=== PATIENT | female | born 1970 | race American Indian/Alaskan Native ===

== ENCOUNTER 2019-08-06 09:52 | Emergency (ER) | payer SELFPAY ==
[2019-08-06 10:00] VITALS: BP 129/57
--- NOTE | 2019-08-06 10:19 | Emergency Department Report ---
Chief Complaint: Urogenital-Female Stated Complaint: VAGINAL IRRITATION Time Seen by Provider: 08/06/19 10:14 - HPI History of Present Illness: 49 yo female c/o vag itching 1.5 mo ago similar sx with minor improvement with monistat x 7 days sx returned no fever, abd pain, dysruria sexually active with - Exam Vital Signs: Vital Signs 08/06/19 09:57 Temperature 98.4 F Pulse Rate 64 Respiratory 18 Rate Blood Pressure 129/57 O2 Sat by Pulse 98 Oximetry Physical Exam: lungs ctab cv: rrr abd soft nontender no back pain MSE screening note: Focused history and physical exam performed. Due to findings the following was ordered: non medical emergency pt left without further tx outpt resources provided ED Disposition for MSE Clinical Impression: Vaginal irritation Disposition: MED SCREENING EXAM-LEFT Is pt being admited?: No Condition: Stable Time of Disposition: 10:19
== END 2019-08-06 10:30 | disposition left against medical advice (07) ==
LOC: ED 09:52
DX: N89.8 Other specified noninflammatory disorders of vagina (principal); L29.2 Pruritus vulvae
CPT/HCPCS: 99281